=== PATIENT | female | born 1970 | race Caucasian/White ===

== ENCOUNTER 2017-03-19 05:00 | Day surgery (SDC) | payer OTHER ==
[2017-03-15 15:36] VITALS: BMI 22.3
[2017-03-19] MEDS ORDERED: PROPOFOL 20 ML ONE (08:47)
[2017-03-19] MEDS ORDERED: BUPIVACAINE HCL/PF 0.5% (5MG/ML) 10 ML VIAL ONE (08:47)
[2017-03-19] MEDS ORDERED: MIDAZOLAM HCL 2 MG/2 ML SINGLE DOSE VIAL ONE (08:48)
[2017-03-19] MEDS ORDERED: ceFAZolin SODIUM 1 GM VIAL ONE (08:48)
[2017-03-19] MEDS ORDERED: LIDOCAINE HCL/PF 2% SDV 5ML VIAL ONE (08:48)
[2017-03-19] MEDS ORDERED: DEXAMETHASONE SOD PHOSPHATE 4 MG/1 ML VIAL ONE (08:48)
[2017-03-19] MEDS ORDERED: DESFLURANE GAS 240 ML BOTTLE IH ONE (08:48)
[2017-03-19] MEDS ORDERED: ROCURONIUM BROMIDE 50 MG/5 ML VIAL ONE ×2 (08:48→09:52)
[2017-03-19] MEDS ORDERED: ceFAZolin SODIUM 1 GM VIAL IVPB ONE (09:27)
[2017-03-19] MEDS ORDERED: GLYCOPYRROLATE 0.2 MG/1 ML VIAL ONE (11:13)
[2017-03-19] MEDS ORDERED: NEOSTIGMINE METHYLSULFATE 0.5 MG/ML - 10 ML MDV ONE (11:13)
[2017-03-19] MEDS ORDERED: BUPIVACAINE HCL/PF 0.5% (5MG/ML) 10 ML VIAL IJ ONE (11:20)
--- NOTE | 2017-03-19 11:42 | HP ---
History & Physical Update - History History: No Change - Physical Physical: No Change - Assessment Assessment: No Change - Plan Plan: No Change
[2017-03-19] MEDS ORDERED: ONDANSETRON 4 MG/2 ML VIAL IVPUSH PRN (11:44)
[2017-03-19] MEDS ORDERED: SIMETHICONE 80 MG TAB.CHEW (FP) PO PRN (11:45)
[2017-03-19] MEDS ORDERED: BISACODYL 10 MG SUPP.RECT PR ONE ×2 (11:45→16:05)
[2017-03-19] MEDS ORDERED: LACTATED RINGERS SOLUTION 1,000 ML IV SCH (11:45)
--- NOTE | 2017-03-19 11:47 | OP ---
Operative Note - Note: Operative Date: 03/19/17 Pre-Operative Diagnosis: Pelvic Pain. Leiomyomatous Uterus. Adenomyosis Operation: Robotic Laparascopic Total Hysterectomy. Bilateral Salpingectomy Post-Operative Diagnosis: Same as Pre-op Surgeon: Melita Sylvester Remote Sensing Specialist: Leticia Conrad Anesthesia: General Operative Report Dictated: Yes
[2017-03-19] MEDS ORDERED: HYDROmorphone HCL CARPU-JECT 2 MG/1 ML DISP.SYRIN ONE (12:02)
[2017-03-19] MEDS: HYDROmorphone HCL CARPU-JECT 1 MG/1 ML DISP.SYRIN IVPUSH PRN ×4 (12:05→13:10)
[2017-03-19] MEDS ORDERED: HYDROmorphone HCL CARPU-JECT 1 MG/1 ML DISP.SYRIN IVPUSH PRN (12:14)
--- NOTE | 2017-03-19 14:11 | OP ---
DATE OF OPERATION: 03/19/2017 PREOPERATIVE DIAGNOSIS: Pelvic pain, leiomyomatous uterus, adenomyosis, and abnormal Pap smear. OPERATION: Laparoscopic robotic total abdominal hysterectomy and bilateral salpingectomy. POSTOPERATIVE DIAGNOSIS: Pelvic pain, leiomyomatous uterus, adenomyosis, and abnormal Pap smear. SURGEON: Melita Sylvester MD POLE FRAMER MACHINE: Leticia Conrad DO ANESTHESIA: General. ANESTHESIOLOGIST: ANESTHESIA: General. FINDINGS: Uterus approximately 9-10 cm in size. Tubes were normal. Ovaries were normal. DESCRIPTION OF PROCEDURE: The patient was taken to the operating room and placed in dorsal lithotomy position, prepped and draped in the usual sterile fashion. A time-out was performed in accordance with hospital regulation. Wheeler catheter was then inserted in the bladder. The cervix was grasped with a single-tooth tenaculum and dilated, and the large VCare was inserted around the cervix. Attention was then drawn to the umbilicus where an 8-mm umbilical incision was made. Veress needle was inserted into the cavity. Approximately 3-4 L of CO2 was insufflated in the cavity. Veress needle was then removed. An 8-mm trocar was inserted. Laparoscope and camera attached. Two trocars were placed on the left and two on the right under direct visualization. Then a 5-mm trocar in the upper left abdomen and parallel to the umbilical incision an 8-mm incision was inserted and trocars were inserted also on the right side. Two trocars 8 mm were inserted after incisions were made under direct visualization. The robot was then side docked to the patient's arm. Trocars were then inserted onto the [place] robot. Laparoscope and a camera was attached. The LigaSure vessel sealer was inserted on the left, and the tenaculum and Endo Ryan were inserted on the right under direct visualization. Control of the Da Rico robot was then done after placement of the instruments was done. Tenaculum was then used to elevate the uterus. The utero-ovarian ligament was identified, clamped, and cut. Round ligament was identified, clamped, and cut on the left side. Vesicular uterine reflection was then entered, and the bladder was bluntly dissected out of the operative field. Cardinal ligament was identified, clamped, and cut down to the level of the cervix. Endo Ryan were then used to cut the vagina. The same procedure was repeated on the right side. Utero-ovarian ligament was identified, clamped, and cut. The round ligament was identified, clamped, and cut. Vesicular uterine reflection had been previously taken down. Bladder was bluntly dissected out of the operative field. Cardinal ligaments were identified, clamped, and cut down to the level of the cervix. The Endo Ryan were then used to cut the vagina away from the cervix. Some bleeding was noted on the right side, and hemostasis was assured using LigaSure and bipolar grasper. The cervix was then removed from the vagina using Endo Ryan. The uterus was then removed from the vagina and the cervix. Tubes were bilaterally grasped, clamped, and cut using vessel sealer and removed. Needle was passed through the vagina, and the vaginal cuff was then closed with 2-0 V-Lock stitch. Hemostasis was achieved. Tubes were removed bilaterally. Ureters were identified and found to have the peristalsis. They were checked several times and found to have peristalsis. The needle was then removed after the vagina was closed. After hemostasis was achieved, trocars were then removed. Incisions were then closed using 4-0 Biosyn suture in subcuticular fashion. Marcaine was infiltrated into the incisions. Steri-Strips were placed on all incisions. Hemostasis was achieved. All gas had been removed. Count was correct. The patient had tolerated the procedure well. Sponge was removed from the vagina. Wheeler catheter was left in place. Hemostasis was achieved. All instruments had been removed. Pad count noted to be normal. Hilario [id number]
[2017-03-19 15:09] LABS: MCH 22.9 pg (25.7-33.7); MCHC 31.6 g/dl (32.0-36.0); MEAN CELL VOLUME 72.5 fl (80-96); MEAN PLT VOLUME 9.5 fl (7.5-11.1); PLATELET COUNT 234 K/MM3 (134-434); RDW 20.1 % (11.6-15.6)
[2017-03-19] MEDS: LACTATED RINGERS SOLUTION 1,000 ML IV SCH (16:41)
[2017-03-19] MEDS: CEFAZOLIN 2 GM/D5W 50 ML IVPB SCH (18:45)
[2017-03-19 20:51] LABS: BASOPHIL 0.2 % (0-2.0); MCH 23.2 pg (25.7-33.7); MCHC 32.3 g/dl (32.0-36.0); MEAN CELL VOLUME 71.9 fl (80-96); MEAN PLT VOLUME 9.9 fl (7.5-11.1); NEUTROPHILS 89.1 % (42.8-82.8); PLATELET COUNT 225 K/MM3 (134-434); RDW 19.2 % (11.6-15.6); WHITE BLOOD COUNT 9.9 K/mm3 (4.0-10.0)
[2017-03-19 21:10] LABS: ANION GAP 9 (8-16); CALCIUM 8.9 mg/dL (8.5-10.1); CO2 25 mmol/L (21-32); CREATININE 0.7 mg/dL (0.55-1.02); GLUCOSE,RANDOM 116 mg/dL (74-106)
[2017-03-19] MEDS: IBUPROFEN 800 MG/8 ML IJ IVPB PRN (21:15)
[2017-03-20] MEDS: CEFAZOLIN 2 GM/D5W 50 ML IVPB SCH ×2 (02:13→10:00)
[2017-03-20 08:05] LABS: BASOPHIL 0.2 % (0-2.0); EOSINOPHIL 0.2 % (0-4.5); MCH 22.8 pg (25.7-33.7); MCHC 31.6 g/dl (32.0-36.0); MEAN PLT VOLUME 9.6 fl (7.5-11.1); NEUTROPHILS 66.3 % (42.8-82.8); PLATELET COUNT 210 K/MM3 (134-434); RDW 19.5 % (11.6-15.6); WHITE BLOOD COUNT 8.1 K/mm3 (4.0-10.0)
[2017-03-20] MEDS: IBUPROFEN 800 MG/8 ML IJ IVPB PRN (08:23)
[2017-03-20 08:30] LABS: ANION GAP 7 (8-16); CALCIUM 8.4 mg/dL (8.5-10.1); CO2 28 mmol/L (21-32); CREATININE 0.7 mg/dL (0.55-1.02); GLUCOSE,RANDOM 95 mg/dL (74-106)
[2017-03-20] MEDS ORDERED: IBUPROFEN 400 MG TABLET (FP) PO PRN (08:33)
--- NOTE | 2017-03-20 08:36 | PN ---
Progress Note (short form) - Note Progress Note: Post op day #1.S/P Robotic laproscopic hysterectomy under [place] uneventful.Patient stable and has little pain for which she is on medication.No any anesthesia related problem.Patient DC from the anesthesia care.
[2017-03-20] MEDS ORDERED: BENZOCAINE/MENTH/CETYLPYRD CL 1 EACH LOZENGE MM PRN (09:40)
--- NOTE | 2017-03-20 09:44 | PN ---
Progress Note (short form) - Note Progress Note: Post op day #1.S/P Robotic laproscopic hysterectomy under [place] uneventful.Patient stable and has little pain for which she is on medication.No any anesthesia related problem.Patient DC from the anesthesia care.Also she c/o some throat pain so Cepacol Lozege.
[2017-03-20] MEDS ORDERED: FLU VACC QS2017-18 36MOS UP/PF 60 MCG/0.5 ML SYRINGE IM ONE (10:00)
[2017-03-20] MEDS ORDERED: ACETAMINOPHEN 325 MG TABLET (FP) PO PRN (10:25)
--- NOTE | 2017-03-20 10:25 | PN ---
Progress Note, Physician Chief Complaint: Post op History of Present Illness: 46 yo status post Laparoscopic robotic hysterectomy, seen and evaluated. She's doing well. She's ambulating and tolerating regular diet. She c/o gas pain and incision pain. - Current Medication List Current Medications: Active Medications Benzocaine/Menthol (Cepacol Lozenge -) 1 each MM PRN PRN PRN Reason: SORE THROAT Hydromorphone HCl (Dilaudid -) 4 mg PO Q4H PRN PRN Reason: PAIN Cefazolin Sodium/Dextrose (Ancef 2 Gm Premixed Ivpb -) 50 mls @ 100 mls/hr IVPB Q8H IRENA Stop: 03/20/17 17:59 Last Admin: 03/20/17 02:13 Dose: 100 mls/hr Lactated Ringer's (Lactated Ringers Solution) 1,000 mls @ 125 mls/hr IV ASDIR IRENA Last Admin: 03/19/17 16:41 Dose: 125 mls/hr Lactated Ringer's (Lactated Ringers Solution) 1,000 mls @ 125 mls/hr IV ASDIR IRENA Ibuprofen (Caldolor Injection -) 800 mg IVPB Q6H PRN PRN Reason: FEVER Last Admin: 03/20/17 08:23 Dose: 800 mg Ibuprofen (Motrin -) 400 mg PO Q6H PRN PRN Reason: PAIN Simethicone (Mylicon -) 80 mg PO Q4H PRN PRN Reason: GAS - Objective Vital Signs: Vital Signs Temperature 99.2 F 03/20/17 09:50 Pulse Rate 70 03/20/17 09:50 Respiratory Rate 20 03/20/17 09:50 Blood Pressure 138/79 03/20/17 09:50 O2 Sat by Pulse Oximetry (%) 100 03/19/17 21:00 Constitutional: Yes: Well Nourished Eyes: Yes: Conjunctiva Clear HENT: Yes: Atraumatic Neck: Yes: Supple Cardiovascular: Yes: Regular Rate and Rhythm Respiratory: Yes: Regular Gastrointestinal: Yes: Normal Bowel Sounds Genitourinary: Yes: Other (incision pain) Breast(s): Yes: WNL Musculoskeletal: Yes: WNL Extremities: Yes: WNL Integumentary: Yes: WNL Wound/Incision: Yes: Clean/Dry. No: Bleeding Neurological: Yes: Alert, Oriented ...Motor Strength: WNL Psychiatric: Yes: Alert, Oriented Labs: CBC, BMP 03/20/17 07:35 03/20/17 07:35 Problem List - Problems (1) Status post laparoscopic hysterectomy Code(s): Z90.710 - ACQUIRED ABSENCE OF BOTH CERVIX AND UTERUS Assessment/Plan Status post Laparoscopic robotic hysterectomy Headache Ambulation Regular diet Tylenol Consider D/C home this PM
[2017-03-20 13:09] VITALS: BP 125/71; PULSE 74; TEMP 99.3
[2017-03-20] MEDS: LACTATED RINGERS SOLUTION 1,000 ML IV SCH (14:07)
--- NOTE | 2017-03-21 16:00 | PATH ---
Surgical Pathology Report Patient Name: MONIE MARTINEZ [facility]. Rec. #: [id number] /Age/Gender: 1970 (Age: 46) / F Account: [id number] Location: AMBULATORY SURG Taken: 03/19/2017 Received: 03/19/2017 Reported: 03/21/2017 Physicians: Melita Sylvester M.D. Specimen(s) Received UTERUS AND CERVIX RIGHT & LEFT FALLOPIAN TUBE Clinical History Fibroids, adenomyosis Final Diagnosis UTERUS, CERVIX, RIGHT AND LEFT FALLOPIAN TUBES, LAPAROSCOPIC ROBOTIC TOTAL HYSTERECTOMY AND BILATERAL SALPHINGECTOMY: UTERUS AND CERVIX 141 G, MYOMETRIUM FOCAL ADENOMYOSIS AND LEIMYOMA(TA), SECRECTORY ENDOMETRIUM. UNREMARKABLE CERVIX. BILATERAL FALLOPIAN TUBES WITH PARATUBAL CYSTS. Electronically Signed Peyton Johns M.D. Gross Description Received in formalin labeled "uterus and cervix, right/left fallopian tubes," is a 141 g hysterectomy specimen comprised of a uterus with an attached cervix and no attached adnexa. The bilateral, undesignated fallopian tubes are separately received within the same container. The specimen measures 10 cm from superior to inferior, 8.3 cm from left to right and 4.5 cm from anterior to posterior. The serosa is pink-michel and smooth. The attached cervix measures 3.5 cm in length and averages 2.8 cm in diameter. The ectocervix is pink-michel, smooth and glistening. The endocervix is unremarkable. The endometrial cavity measures 5 cm in length and 2.8 cm from cornu to cornu. The endometrium is michel-red and averages 0.3 cm in thickness. The myometrium is michel-pink and averages 2.2 cm in thickness. No fibroids are identified. The two undesignated, separately received fallopian tubes measure 1.5 and 2.5 cm in length. The longer portion displays attached fimbria as well as 2 paratubal cysts measuring 1.0 and 1.3 cm in greatest dimension. There are no fimbria attached to the shorter portion of fallopian tube. Sectioning of both fallopian tubes reveals an unremarkable lumen. Basketball Commentator sections are submitted in 9 cassettes as follows: 1-anterior cervix; 2-posterior cervix; 1-1-hqvaxlzi endomyometrium; 4-3-fkmbnyjcr endomyometrium; 7-longer portion of fallopian tube fimbria and paratubal cysts; 8-cross sections of longer portion of fallopian tube; 9-cross sections of shorter portion of fallopian tube, 10-12- additional sections of myometrium. 03/19/201703/19/2017
== END 2017-03-20 14:00 | disposition home or self-care (01) ==
LOC: JASUSAT 05:00 → J3W 14:30 → JASUSAT 03-20 14:00
PROVIDERS: ATTEND Obstetrics & Gynecology
PROC: 0UT7FZZ Resection of Bilateral Fallopian Tubes, Via Natural or Artificial Opening With Percutaneous Endoscopic Assistance (ICD-10-PCS; 2017-03-19)
PROC: 8E0W4CZ Robotic Assisted Procedure of Trunk Region, Percutaneous Endoscopic Approach (ICD-10-PCS; 2017-03-19)
PROC: 0UT9FZZ Resection of Uterus, Via Natural or Artificial Opening With Percutaneous Endoscopic Assistance (ICD-10-PCS; principal; 2017-03-19 08:45)
PROC: 0UTC7ZZ Resection of Cervix, Via Natural or Artificial Opening (ICD-10-PCS; 2017-03-19 08:45)
DX: D25.9 Leiomyoma of uterus, unspecified (principal); N80.0 Endometriosis of uterus; R87.619 Unspecified abnormal cytological findings in specimens from cervix uteri
CPT/HCPCS: 58552; S2900; 36415; 80048; 84703; 85025; 85027; 88307-TC; 90686; 94010; 94760